=== PATIENT | male | born 1970 | race Caucasian/White ===

== ENCOUNTER 2019-01-27 17:32 | Emergency (ER) | payer BC ==
--- NOTE | 2019-01-27 18:09 | Emergency Department Record ---
Anxiety - General Chief Complaint: Anxiety Stated Complaint: REACTION TO MEDICATION/CONFUSION,AGITATION Time Seen by Provider: 01/27/19 18:04 Source: Patient Mode of Arrival: Ambulatory Limitations: No limitations - History of Present Illness Initial Comments: 48 yo male presents to ED at the urging of his PCP for evaluation of increased aggression since increasing his Paxil from 10 mg to 20 mg on November 30. Patient reports that he is easily angered, frustrated, and getting into both verbal and physical fights with other individuals. Patient denies headache, change in vision, recent illness, fevers, chills, or focal weakness symptoms. Patient de nies specific thoughts of self harm or thoughts of harming others. MD Complaint: Other Onset/Timin -: Month(s) Previous History of Same: No Severity: Moderate Quality: Intermittant Provoking factors: Emotional stress Improves With: Nothing Worsens With: Nothing Associated symptoms: Denies other symptoms - Related Data Allergies/Adverse Reactions: Allergies Allergy/AdvReac Type Severity Reaction Status Date / Time No Known Drug Allergies Allergy Verified 01/27/19 17:49 Review of Systems Constitutional: Denies: Chills, Fever, Malaise, Night sweats Eyes: Denies: Eye discharge, Eye pain ENT: Denies: Congestion, Dental pain Respiratory: Denies: Cough, Dyspnea Cardiovascular: Denies: Chest pain, Dyspnea on exertion Endocrine: Denies: Fatigue, Heat or cold intolerance Gastrointestinal: Denies: Abdominal pain, Nausea, Vomiting Genitourinary: Denies: Incontinence, Retention Musculoskeletal: Denies: Arthralgia, Back pain Skin: Denies: Bruising, Change in color Neurological: Denies: Abnormal gait, Confusion, Headache, Tingling, Tremors Psychiatric: Reports: Depression. Denies: Anxiety, Suicidal thoughts Hematological/Lymphatic: Denies: Anemia, Blood Clots Physical Exam - General General Appearance: Alert, Oriented x3, Cooperative Limitations: No limitations - Head Head exam: Atraumatic, Normocephalic, Normal inspection Head exam detail: negative: Abrasion, Contusion, Núñez's sign, General tenderness, Hematoma, Laceration - Eye Eye exam: Normal appearance. negative: Conjunctival injection, Periorbital swelling, Periorbital tenderness, Scleral icterus - ENT Ear exam: negative: Auricular hematoma, Auricular trauma Nasal Exam: negative: Active bleeding, Discharge, Dried blood, Foreign body Mouth exam: negative: Drooling, Laceration, Muffled voice, Tongue elevation - Neck Neck exam: Normal inspection. negative: Meningismus, Tenderness - Respiratory Respiratory exam: Normal lung sounds bilaterally. negative: Respiratory distress, Rhonchi, Stridor, Wheezes - Cardiovascular Cardiovascular Exam: Regular rate, Normal rhythm, Normal heart sounds - GI/Abdominal GI/Abdominal exam: Soft. negative: Distended, Rebound, Rigid, Tenderness - Rectal Rectal exam: Deferred - exam: Deferred - Extremities Extremities exam: Normal inspection. negative: Pedal edema, Tenderness - Back Back exam: Denies: CVA tenderness (R), CVA tenderness (L) - Neurological Neurological exam: Alert, Normal gait, Oriented X3. negative: Motor sensory deficit - Psychiatric Psychiatric exam: Other (Mild agitation on examination, denieds SI/HI.) - Skin Skin exam: Normal color. negative: Abrasion Type of lesion: negative: abrasion Course - Reevaluation(s) Reevaluation #1: 01/27/19 18:25 Case was discussed with on-call provider for Dr. Shelby (Dr. Young), reviewed the patient's presentation today in the ED, she reviewed the patient's medical record on-line. Discussed ED evaluation today and if no organic etiolgoy is identified, will have the patient go back to 10 mg Paxil with recommendation to seek counseling and follow-up with his PCP. Reevaluation #2: 01/27/19 18:50 MA attempted blood draw, missed IV. Patient is refusing further attempts, wants to leave with his at this time. Patient's reports that she is going to get the patient in to see a psychiatrist in [place] for further evaluation. Patient again denies HI/SI at this time, wants to leave prior to head CT result. Reiterated the recommendation to decrease his Paxil back to 10 mg until seen by his PCP. Patient appears stable for discharge at this time. Medical Decision Making - Lab Data Result diagrams: 01/27/19 18:05 01/27/19 18:05 Disposition Disposition: Discharge Clinical Impression: Agitation Disposition: Home, Self-Care Condition: (2) Stable Instructions: Depression (ED) Additional Instructions: Return to ED if your symptoms worsen or if you have any concerns. Follow-up with Dr. Shelby in 3-5 days as directed. reduce your Paxil back to 10 mg until seen by Dr. Sehlby. Forms: Patient Portal Access Time of Disposition: 18:53 Quality - Quality Measures Quality Measures: N/A - Blood Pressure Screening Does Patient Have Any of the Following: No Blood Pressure Classification: Normal BP Reading Systolic Measurement: 106 Diastolic Measurement: 65 Screening for High Blood Pressure: < Normal BP, F/U Not Required > [G8783]
--- NOTE | 2019-01-29 09:45 | CT SCAN REPORT ---
EXAM: HEAD CT WITHOUT CONTRAST HISTORY: MOOD ALTERATION, CONFUSION, ANXIETY. TECHNIQUE: Axial CT scan of the head was performed without IV contrast. Comparison: None. FINDINGS: There is some mild calcification in the region of the posterior aspect of the globes bilaterally, right greater than left. The significance of this is uncertain. The right globe also appears to have a somewhat more oblong rather than round shape as well. Ophthalmologic evaluation may be useful. No definite acute intracranial hemorrhage identified. No focal mass effect or midline shift evident. No definite acute infarct or intracranial mass lesion is seen. Some membrane thickening inferiorly in the frontal sinuses and in the ethmoids bilaterally as well as inferiorly in the maxillary sinuses left greater than right. Opacification of some mastoid air cells on the right with overall relatively little aeration of mastoid cells bilaterally probably on a developmental basis. There is probably opacification in the right middle ear cavity as well. IMPRESSION: 1. NO DEFINITE ACUTE INTRACRANIAL HEMORRHAGE OR FOCAL MASS EFFECT EVIDENT. 2. SOME MEMBRANE THICKENING IN THE PARANASAL SINUSES DETAILED ABOVE, GREATEST IN THE ETHMOIDS AND INFERIORLY IN THE FRONTAL SINUSES. 3. SMALL AMOUNT OF CALCIFICATION ON THE POSTERIOR ASPECT OF BOTH GLOBES RIGHT GREATER THAN LEFT AND ALSO SLIGHTLY OBLONG APPEARANCE OF THE GLOBE WITHIN THE RIGHT ORBIT COMPARED TO THE LEFT. OPHTHALMOLOGIC EVALUATION MAY BE USEFUL. JOB NUMBER: [id number] [facility] [place] [facility]
== END 2019-01-27 19:00 | disposition home or self-care (01) ==
LOC: ER 17:32
DX: R45.1 Restlessness and agitation (principal); F41.8 Other specified anxiety disorders; F17.210 Nicotine dependence, cigarettes, uncomplicated
CPT/HCPCS: 70450; 99283